=== PATIENT | male | born 1965 | race Caucasian/White ===

== ENCOUNTER 2022-09-06 07:56 | Emergency (ER) | payer BC, OTHER ==
[~2022-09-06] VITALS: Ht 172.7 cm; Wt 99.8 kg
[2022-09-06] MEDS ORDERED: MORPHINE 2 MG SYG IM ONE (08:30)
[2022-09-06] MEDS ORDERED: ONDANSETRON 4MG INJ IVP ONE (08:30)
[2022-09-06] MEDS ORDERED: 0.9%NACL 1000ML 1,000 ML IV ONE (08:30)
[2022-09-06 08:49] LABS: BASOPHILS % (AUTO) 0.7 % (0.0-5.0); HEMATOCRIT 45.4 % (42-54); LYMPHOCYTES % (AUTO) 17.2 % (21.0-51.0); MEAN CORPUSCULAR HEMOGLOBIN 30.2 pg (27.0-33.0); MEAN CORPUSCULAR HGB CONC 36.8 g/dL (32.0-36.0); MEAN CORPUSCULAR VOLUME 82.1 fL (79-99); MONOCYTES % (AUTO) 10.7 % (3.0-13.0); NEUTROPHILS % (AUTO) 64.5 % (40.0-77.0); PLATELET COUNT (AUTO) 195 K/uL (130-400); RED BLOOD CELL COUNT(AUTO) 5.53 MIL/uL (4.50-6.20); RED CELL DISTRIBUTION WIDTH 14.3 % (11.0-15.5)
[2022-09-06 09:23] LABS: CREATININE 0.8 mg/dL (0.5-1.5); POTASSIUM 4.3 mmol/L (3.5-5.1)
[2022-09-06 09:29] LABS: ALBUMIN 3.8 g/dL (3.5-5.0); TOTAL PROTEIN, SERUM 6.7 g/dL (6.0-8.3)
[2022-09-06 10:10] VITALS: BP 118/72
[2022-09-06] MEDS ORDERED: IOHEXOL 350 MG/ML 100ML INFUS..BTL IV ONE (10:39)
[2022-09-06] MEDS ORDERED: OMEP20TA2 PO (12:11)
[2022-09-06] MEDS ORDERED: DICY20TA2 PO (12:11)
[2022-09-06] MEDS ORDERED: IBUP-1493 PO (12:11)
== END 2022-09-06 12:41 | disposition home or self-care (01) ==
LOC: EDH 07:56
DX: R10.11 Right upper quadrant pain (principal); Z90.89 Acquired absence of other organs
CPT/HCPCS: 99285; 74177; 96374; 76705; 96361; 80053; 83690; 85025; 36415; 96372; J2405; Q9967